=== PATIENT | female | born 1990 | race Caucasian/White ===

== ENCOUNTER 2022-08-08 09:51 | Day surgery (SDC) | payer BC ==
[~2022-08-08 09:51] MED LIST: LACTATED RINGERS 1,000 ML IV SCH
[2022-08-08 11:21] VITALS: TEMP 97.6
[2022-08-08] MEDS ORDERED: PROPOFOL 10 MG/ML 20 ML VIAL IV ONE (11:22)
--- NOTE | 2022-08-08 11:38 | P.PCN ---
Date of Procedure: 08/08/22 Procedure(s) Performed: BRIEF HISTORY: Patient is a 32-year-old pleasant white female scheduled for an elective colonoscopy as a part of evaluation of intermittent rectal bleeding. 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 PREOPERATIVE DIAGNOSIS: Intermittent rectal bleeding. IV sedation per Anesthesia. PROCEDURE: After informed consent was obtained, the patient, was brought into the endoscopy unit. IV sedation was administered by Anesthesia under continuous monitoring. Digital rectal examination was normal. Initially the Olympus CF-160 flexible video colonoscope was then inserted in the rectum, gradually advanced into the cecum without any difficulty. Careful examination was performed as the scope was gradually being withdrawn. Ileocecal valve and the appendiceal orifice were visualized and appeared normal. Prep was fair. Mucosa of the cecum, ascending colon, transverse colon, descending colon, sigmoid colon, and rectum appeared normal. Retroflexion was performed in the rectum and no lesions were seen. The patient tolerated the procedure well. IMPRESSION: Normal-appearing colon from rectum to cecum with no evidence of colorectal neoplasia.. RECOMMENDATIONS: Findings of this examination were discussed with the patient as well as her family. She was advised to have a repeat colonoscopy at age 43
[2022-08-08 11:55] VITALS: BP 108/79; PULSE 78; RESP 16
== END 2022-08-08 12:20 | disposition home or self-care (01) ==
LOC: ORWHC2ENDO 09:51
PROVIDERS: ATTEND Internal Medicine Gastroenterology
DX: K62.5 Hemorrhage of anus and rectum (principal); Z79.899 Other long term (current) drug therapy; Z90.49 Acquired absence of other specified parts of digestive tract
CPT/HCPCS: 81025; 45378; J2704

== ENCOUNTER → 2024-07-21 | Outpatient (CLI) | payer BC ==
--- NOTE | 2024-07-22 09:55 | MM ---
Reason for Exam: Screening (asymptomatic). Baseline mammogram. Patient History: Menarche at age 13. First Full-Term at age 17. Maternal aunt had breast cancer, age 55. Maternal aunt had breast cancer, age 60. Last menstrual period: 07/03/2024 Risk Values: Brenda 5 year model risk: 0.2%. NCI Lifetime model risk: 6.8%. Prior Study Comparison: Patient's first Mammogram. Tissue Density: The breasts are heterogeneously dense, which may obscure small masses. Findings: Analyzed By CAD. There is no suspicious group of microcalcifications or new suspicious mass in either breast. Overall Assessment: Negative, BI-RAD 1 Management: Screening Mammogram of both breasts in 1 year. . Patient should continue monthly self-breast exams. A clinical breast exam by your physician is recommended on an annual basis. This exam should not preclude additional follow-up of suspicious palpable abnormalities. Note on Brenda scores and lifetime risk: 1. A Brenda score greater than 3% is considered moderate risk. If this is the case, consider specialist referral to assess eligibility for a risk reducing agent. 2. If overall lifetime risk for the development of breast cancer is 20% or higher, the patient may qualify for future screening with alternating mammogram and breast MRI. [facility], , 07/22/2024 9:52 AM. Electronically signed and approved by: Barney Ash M.D. Radiolog[facility]
== END | disposition home or self-care (01) ==
LOC: RADMAMWWP 13:46
PROVIDERS: ATTEND Family Medicine
DX: Z12.31 Encounter for screening mammogram for malignant neoplasm of breast (principal); Z80.3 Family history of malignant neoplasm of breast; R92.333 Mammographic heterogeneous density, bilateral breasts
CPT/HCPCS: 77063; 77067